=== PATIENT | male | born 1990 | race Caucasian/White ===

== ENCOUNTER → 2018-01-05 | Outpatient (CLI) | payer OTHER | LOC: COL.RAD 13:09 | DX: I37.1 Nonrheumatic pulmonary valve insufficiency (principal) ==

== ENCOUNTER → 2018-01-17 | Outpatient (CLI) | payer OTHER | LOC: COL.VAS 08:02 → EDBD 08:02 → COL.VAS 08:45 | DX: Z53.8 Procedure and treatment not carried out for other reasons (principal); R55 Syncope and collapse ==